=== PATIENT | male | born 1955 | race American Indian/Alaskan Native ===

== ENCOUNTER 2016-08-22 11:26 | Outpatient (CLI) | payer OTHER ==
[2016-08-22] MEDS ORDERED: XYLOCAINE TOPICAL 2% TP ONE ×2 (11:56→12:13)
== END 2016-08-22 11:27 | disposition home or self-care (01) ==
LOC: WOUND 11:26
PROVIDERS: ATTEND Orthopaedic Surgery
DX: S71.102D Unspecified open wound, left thigh, subsequent encounter (principal); J45.909 Unspecified asthma, uncomplicated; Z87.891 Personal history of nicotine dependence; W17.89XD Other fall from one level to another, subsequent encounter
CPT/HCPCS: 97597; 97598

== ENCOUNTER 2016-09-05 07:46 | Outpatient (CLI) | payer OTHER ==
[2016-09-05] MEDS ORDERED: XYLOCAINE TOPICAL 2% TP ONE (10:54)
[2016-09-05] MEDS ORDERED: SANTYL TP ONE (11:43)
[2016-09-05] MEDS ORDERED: SILVER NITRATE TP ONE (11:45)
[2016-09-05] MEDS ORDERED: NACL 0.9% 500 ML IR ONE (11:58)
[2016-09-06] MEDS ORDERED: SILVER NITRATE TP ONE (16:12)
[2016-09-06] MEDS ORDERED: NACL 0.9% IR PRN (16:12)
[2016-09-06] MEDS ORDERED: XYLOCAINE TOPICAL 2% TP ONE (16:12)
== END 2016-09-05 07:47 | disposition home or self-care (01) ==
LOC: WOUND 07:46
PROVIDERS: ATTEND Internal Medicine
DX: T86.821 Skin graft (allograft) (autograft) failure (principal); L97.822 Non-pressure chronic ulcer of other part of left lower leg with fat layer exposed; J44.0 Chronic obstructive pulmonary disease with (acute) lower respiratory infection; E66.01 Morbid (severe) obesity due to excess calories; I10 Essential (primary) hypertension; R35.8 Other polyuria; Z87.891 Personal history of nicotine dependence; Y83.2 Surgical operation with anastomosis, bypass or graft as the cause of abnormal reaction of the patient, or of later complication, without mention of misadventure at the time of the procedure
CPT/HCPCS: 11043; 11046; 87075; 87116; 97602; G0277; 87076; 87186; 99183

== ENCOUNTER 2016-09-06 07:47 | Outpatient (CLI) | payer OTHER | END 2016-09-06 07:48 | disposition home or self-care (01) | LOC: WOUND 07:47 | PROVIDERS: ATTEND Podiatrist | DX: T86.821 Skin graft (allograft) (autograft) failure (principal); L97.822 Non-pressure chronic ulcer of other part of left lower leg with fat layer exposed; J44.1 Chronic obstructive pulmonary disease with (acute) exacerbation; I10 Essential (primary) hypertension; J45.909 Unspecified asthma, uncomplicated; E66.9 Obesity, unspecified; Z87.891 Personal history of nicotine dependence; Y83.2 Surgical operation with anastomosis, bypass or graft as the cause of abnormal reaction of the patient, or of later complication, without mention of misadventure at the time of the procedure | CPT/HCPCS: G0277 ×2; 99183 ==

== ENCOUNTER 2016-09-07 13:30 | Outpatient (CLI) | payer OTHER | END 2016-09-07 13:31 | disposition home or self-care (01) | LOC: WOUND 13:30 | PROVIDERS: ATTEND Internal Medicine | DX: T86.821 Skin graft (allograft) (autograft) failure (principal); L97.822 Non-pressure chronic ulcer of other part of left lower leg with fat layer exposed; J44.1 Chronic obstructive pulmonary disease with (acute) exacerbation; I10 Essential (primary) hypertension; J45.909 Unspecified asthma, uncomplicated; E66.9 Obesity, unspecified; Z87.891 Personal history of nicotine dependence; Y83.2 Surgical operation with anastomosis, bypass or graft as the cause of abnormal reaction of the patient, or of later complication, without mention of misadventure at the time of the procedure | CPT/HCPCS: 82962; G0277; 99183 ==

== ENCOUNTER 2016-09-08 10:03 | Outpatient (CLI) | payer OTHER | END 2016-09-08 10:04 | disposition home or self-care (01) | LOC: WOUND 10:03 | PROVIDERS: ATTEND Internal Medicine | DX: T86.821 Skin graft (allograft) (autograft) failure (principal); L97.821 Non-pressure chronic ulcer of other part of left lower leg limited to breakdown of skin; I10 Essential (primary) hypertension; J45.909 Unspecified asthma, uncomplicated; E66.9 Obesity, unspecified; Z87.891 Personal history of nicotine dependence; Y83.2 Surgical operation with anastomosis, bypass or graft as the cause of abnormal reaction of the patient, or of later complication, without mention of misadventure at the time of the procedure | CPT/HCPCS: G0277 ×2; 99183 ==

== ENCOUNTER 2016-09-09 10:01 | Outpatient (CLI) | payer OTHER | END 2016-09-09 10:02 | disposition home or self-care (01) | LOC: WOUND 10:01 | PROVIDERS: ATTEND Podiatrist | DX: T86.821 Skin graft (allograft) (autograft) failure (principal); L97.822 Non-pressure chronic ulcer of other part of left lower leg with fat layer exposed; J44.1 Chronic obstructive pulmonary disease with (acute) exacerbation; I10 Essential (primary) hypertension; E66.9 Obesity, unspecified; Z87.891 Personal history of nicotine dependence; Y83.2 Surgical operation with anastomosis, bypass or graft as the cause of abnormal reaction of the patient, or of later complication, without mention of misadventure at the time of the procedure | CPT/HCPCS: G0277 ×2; 99183 ==

== ENCOUNTER 2016-09-12 10:01 | Outpatient (CLI) | payer OTHER ==
[2016-09-12] MEDS ORDERED: XYLOCAINE TOPICAL 2% TP ONE ×2 (13:12→15:06)
[2016-09-12] MEDS ORDERED: SILVER NITRATE TP ONE (16:00)
== END 2016-09-12 10:02 | disposition home or self-care (01) ==
LOC: WOUND 10:01
PROVIDERS: ATTEND Internal Medicine
DX: T86.821 Skin graft (allograft) (autograft) failure (principal); L97.821 Non-pressure chronic ulcer of other part of left lower leg limited to breakdown of skin; J44.1 Chronic obstructive pulmonary disease with (acute) exacerbation; I10 Essential (primary) hypertension; J45.909 Unspecified asthma, uncomplicated; Z87.891 Personal history of nicotine dependence; Y83.2 Surgical operation with anastomosis, bypass or graft as the cause of abnormal reaction of the patient, or of later complication, without mention of misadventure at the time of the procedure
CPT/HCPCS: 11042; 11045; G0277; 99183

== ENCOUNTER 2016-09-13 10:34 | Outpatient (CLI) | payer OTHER ==
[~2016-09-13 10:34] MED LIST: AD OINTMENT TP ONE; SILVER NITRATE TP ONE
== END 2016-09-13 10:35 | disposition home or self-care (01) ==
LOC: WOUND 10:34
PROVIDERS: ATTEND Podiatrist
DX: T86.821 Skin graft (allograft) (autograft) failure (principal); L97.821 Non-pressure chronic ulcer of other part of left lower leg limited to breakdown of skin; J44.1 Chronic obstructive pulmonary disease with (acute) exacerbation; I10 Essential (primary) hypertension; E66.9 Obesity, unspecified; Z87.891 Personal history of nicotine dependence; Y83.2 Surgical operation with anastomosis, bypass or graft as the cause of abnormal reaction of the patient, or of later complication, without mention of misadventure at the time of the procedure
CPT/HCPCS: G0277 ×2; 99183; A6250

== ENCOUNTER 2016-09-14 09:40 | Outpatient (CLI) | payer OTHER | END 2016-09-14 09:41 | disposition home or self-care (01) | LOC: WOUND 09:40 | PROVIDERS: ATTEND Internal Medicine | DX: T86.821 Skin graft (allograft) (autograft) failure (principal); L97.822 Non-pressure chronic ulcer of other part of left lower leg with fat layer exposed; J44.1 Chronic obstructive pulmonary disease with (acute) exacerbation; I10 Essential (primary) hypertension; E66.9 Obesity, unspecified; Z87.891 Personal history of nicotine dependence; Y83.2 Surgical operation with anastomosis, bypass or graft as the cause of abnormal reaction of the patient, or of later complication, without mention of misadventure at the time of the procedure | CPT/HCPCS: G0277 ×2; 99183 ==

== ENCOUNTER 2016-09-15 10:43 | Outpatient (CLI) | payer OTHER | END 2016-09-15 10:44 | disposition home or self-care (01) | LOC: WOUND 10:43 | PROVIDERS: ATTEND Internal Medicine | DX: T86.821 Skin graft (allograft) (autograft) failure (principal); L97.822 Non-pressure chronic ulcer of other part of left lower leg with fat layer exposed; J44.1 Chronic obstructive pulmonary disease with (acute) exacerbation; I10 Essential (primary) hypertension; E66.9 Obesity, unspecified; Z87.891 Personal history of nicotine dependence | CPT/HCPCS: G0277 ×2; 99183 ==

== ENCOUNTER 2016-09-16 10:11 | Outpatient (CLI) | payer OTHER | END 2016-09-16 10:12 | disposition home or self-care (01) | LOC: WOUND 10:11 | PROVIDERS: ATTEND Podiatrist | DX: T86.821 Skin graft (allograft) (autograft) failure (principal); L97.822 Non-pressure chronic ulcer of other part of left lower leg with fat layer exposed; J44.1 Chronic obstructive pulmonary disease with (acute) exacerbation; I10 Essential (primary) hypertension; E66.9 Obesity, unspecified; Z87.891 Personal history of nicotine dependence; Y83.2 Surgical operation with anastomosis, bypass or graft as the cause of abnormal reaction of the patient, or of later complication, without mention of misadventure at the time of the procedure | CPT/HCPCS: G0277 ×2; 82962; 99183 ==

== ENCOUNTER 2016-09-19 10:04 | Outpatient (CLI) | payer OTHER ==
[2016-09-19] MEDS ORDERED: XYLOCAINE TOPICAL 4% TP ONE ×2 (12:40→16:30)
[2016-09-19] MEDS ORDERED: SILVER NITRATE TP ONE ×4 (13:07→16:30)
== END 2016-09-19 10:05 | disposition home or self-care (01) ==
LOC: WOUND 10:04
PROVIDERS: ATTEND Internal Medicine
DX: T86.821 Skin graft (allograft) (autograft) failure (principal); L97.822 Non-pressure chronic ulcer of other part of left lower leg with fat layer exposed; J44.1 Chronic obstructive pulmonary disease with (acute) exacerbation; I10 Essential (primary) hypertension; R35.8 Other polyuria; E66.9 Obesity, unspecified; Z87.891 Personal history of nicotine dependence; Y83.2 Surgical operation with anastomosis, bypass or graft as the cause of abnormal reaction of the patient, or of later complication, without mention of misadventure at the time of the procedure
CPT/HCPCS: 11042; 11045; G0277; 99183

== ENCOUNTER 2016-09-20 09:53 | Outpatient (CLI) | payer OTHER | END 2016-09-20 09:54 | disposition home or self-care (01) | LOC: WOUND 09:53 | PROVIDERS: ATTEND Podiatrist | DX: T86.821 Skin graft (allograft) (autograft) failure (principal); L97.821 Non-pressure chronic ulcer of other part of left lower leg limited to breakdown of skin; J44.1 Chronic obstructive pulmonary disease with (acute) exacerbation; I10 Essential (primary) hypertension; J45.909 Unspecified asthma, uncomplicated; E66.9 Obesity, unspecified; Z87.891 Personal history of nicotine dependence; Y83.2 Surgical operation with anastomosis, bypass or graft as the cause of abnormal reaction of the patient, or of later complication, without mention of misadventure at the time of the procedure | CPT/HCPCS: G0277 ×2; 99183 ==

== ENCOUNTER 2016-09-21 10:00 | Outpatient (CLI) | payer OTHER | END 2016-09-21 10:01 | disposition home or self-care (01) | LOC: WOUND 10:00 | PROVIDERS: ATTEND Internal Medicine | DX: T86.821 Skin graft (allograft) (autograft) failure (principal); L97.822 Non-pressure chronic ulcer of other part of left lower leg with fat layer exposed; J44.1 Chronic obstructive pulmonary disease with (acute) exacerbation; I10 Essential (primary) hypertension; E66.9 Obesity, unspecified; Z87.891 Personal history of nicotine dependence; Y83.2 Surgical operation with anastomosis, bypass or graft as the cause of abnormal reaction of the patient, or of later complication, without mention of misadventure at the time of the procedure | CPT/HCPCS: G0277 ×2; 99183 ==

== ENCOUNTER 2016-09-22 10:26 | Outpatient (CLI) | payer OTHER | END 2016-09-22 10:27 | disposition home or self-care (01) | LOC: WOUND 10:26 | PROVIDERS: ATTEND Nurse Practitioner | DX: T86.821 Skin graft (allograft) (autograft) failure (principal); L97.822 Non-pressure chronic ulcer of other part of left lower leg with fat layer exposed; J44.1 Chronic obstructive pulmonary disease with (acute) exacerbation; I10 Essential (primary) hypertension; E66.9 Obesity, unspecified; Z87.891 Personal history of nicotine dependence; Y83.2 Surgical operation with anastomosis, bypass or graft as the cause of abnormal reaction of the patient, or of later complication, without mention of misadventure at the time of the procedure | CPT/HCPCS: G0277 ×2; 99183 ==

== ENCOUNTER 2016-09-26 10:00 | Outpatient (CLI) | payer OTHER ==
[2016-09-26] MEDS ORDERED: XYLOCAINE TOPICAL 4% TP ONE ×2 (12:20→16:07)
== END 2016-09-26 10:01 | disposition home or self-care (01) ==
LOC: WOUND 10:00
PROVIDERS: ATTEND Internal Medicine
DX: T86.821 Skin graft (allograft) (autograft) failure (principal); L97.821 Non-pressure chronic ulcer of other part of left lower leg limited to breakdown of skin; J44.1 Chronic obstructive pulmonary disease with (acute) exacerbation; I10 Essential (primary) hypertension; E66.8 Other obesity; Z87.891 Personal history of nicotine dependence; Y83.2 Surgical operation with anastomosis, bypass or graft as the cause of abnormal reaction of the patient, or of later complication, without mention of misadventure at the time of the procedure
CPT/HCPCS: 11042; 11045; C5271; G0277; Q4102; 99183

== ENCOUNTER 2016-09-27 10:00 | Outpatient (CLI) | payer OTHER ==
[~2016-09-27 10:00] MED LIST changes: -AD OINTMENT TP ONE; -SILVER NITRATE TP ONE; +XYLOCAINE TOPICAL 4% TP ONE
== END 2016-09-27 10:01 | disposition home or self-care (01) ==
LOC: WOUND 10:00
PROVIDERS: ATTEND Podiatrist
DX: T86.821 Skin graft (allograft) (autograft) failure (principal); L97.822 Non-pressure chronic ulcer of other part of left lower leg with fat layer exposed; J44.1 Chronic obstructive pulmonary disease with (acute) exacerbation; I10 Essential (primary) hypertension; J45.909 Unspecified asthma, uncomplicated; E66.9 Obesity, unspecified; Z87.891 Personal history of nicotine dependence; Y83.2 Surgical operation with anastomosis, bypass or graft as the cause of abnormal reaction of the patient, or of later complication, without mention of misadventure at the time of the procedure
CPT/HCPCS: G0277 ×2; 99183

== ENCOUNTER 2016-09-28 09:54 | Outpatient (CLI) | payer OTHER | END 2016-09-28 09:55 | disposition home or self-care (01) | LOC: WOUND 09:54 | PROVIDERS: ATTEND Internal Medicine | DX: T86.821 Skin graft (allograft) (autograft) failure (principal); L97.821 Non-pressure chronic ulcer of other part of left lower leg limited to breakdown of skin; J44.1 Chronic obstructive pulmonary disease with (acute) exacerbation; I10 Essential (primary) hypertension; E66.9 Obesity, unspecified; Z87.891 Personal history of nicotine dependence; Y83.2 Surgical operation with anastomosis, bypass or graft as the cause of abnormal reaction of the patient, or of later complication, without mention of misadventure at the time of the procedure | CPT/HCPCS: G0277 ×2; 99183 ==

== ENCOUNTER 2016-09-29 09:59 | Outpatient (CLI) | payer OTHER | END 2016-09-29 10:00 | disposition home or self-care (01) | LOC: WOUND 09:59 | PROVIDERS: ATTEND Nurse Practitioner | DX: T86.821 Skin graft (allograft) (autograft) failure (principal); L97.822 Non-pressure chronic ulcer of other part of left lower leg with fat layer exposed; J44.1 Chronic obstructive pulmonary disease with (acute) exacerbation; I10 Essential (primary) hypertension; E66.9 Obesity, unspecified; Z87.891 Personal history of nicotine dependence; Y83.2 Surgical operation with anastomosis, bypass or graft as the cause of abnormal reaction of the patient, or of later complication, without mention of misadventure at the time of the procedure | CPT/HCPCS: G0277 ×2; 99183 ==

== ENCOUNTER 2016-09-30 09:58 | Outpatient (CLI) | payer OTHER ==
[2016-09-30] MEDS ORDERED: XYLOCAINE TOPICAL 2% TP ONE (12:04)
== END 2016-09-30 09:59 | disposition home or self-care (01) ==
LOC: WOUND 09:58
PROVIDERS: ATTEND Podiatrist
DX: T86.821 Skin graft (allograft) (autograft) failure (principal); L97.822 Non-pressure chronic ulcer of other part of left lower leg with fat layer exposed; J44.1 Chronic obstructive pulmonary disease with (acute) exacerbation; I10 Essential (primary) hypertension; E66.9 Obesity, unspecified; Z87.891 Personal history of nicotine dependence; Y83.2 Surgical operation with anastomosis, bypass or graft as the cause of abnormal reaction of the patient, or of later complication, without mention of misadventure at the time of the procedure
CPT/HCPCS: G0277 ×2; 99183

== ENCOUNTER 2016-10-03 11:54 | Outpatient (CLI) | payer OTHER ==
[2016-10-03] MEDS ORDERED: XYLOCAINE TOPICAL 4% TP ONE (12:34)
== END 2016-10-03 11:55 | disposition home or self-care (01) ==
LOC: WOUND 11:54
PROVIDERS: ATTEND Internal Medicine
DX: T86.821 Skin graft (allograft) (autograft) failure (principal); L97.822 Non-pressure chronic ulcer of other part of left lower leg with fat layer exposed; I10 Essential (primary) hypertension; J44.1 Chronic obstructive pulmonary disease with (acute) exacerbation; E66.9 Obesity, unspecified; Y83.2 Surgical operation with anastomosis, bypass or graft as the cause of abnormal reaction of the patient, or of later complication, without mention of misadventure at the time of the procedure

== ENCOUNTER 2016-10-10 10:19 | Outpatient (CLI) | payer OTHER ==
--- NOTE | 2016-10-04 09:17 | History and Physical Report ---
CHIEF COMPLAINT: Left lower extremity wound nonhealing and redness around the wound for 2 weeks. HISTORY OF PRESENT ILLNESS: A 60-year-old male with a history of asthma and no hypertension. No diabetes. He was sent in from wound clinic as a direct admit. The patient is being admitted for cellulitis from the wound clinic as a direct admit. The patient has ulcer on the left leg secondary to trauma few months ago, which is a nonhealing ulcer and the patient had a skin graft from the ulcer and there was a small open wound and surrounded by erythema ____. Because of nonhealing ulcer and erythema surrounding ulcer the patient is being admitted for possible cellulitis. The patient also has skin graft, which is healing. The skin graft is on the left thigh. No fever. No chills. PAST MEDICAL HISTORY: Significant for asthma. PAST SURGICAL HISTORY: Left skin graft from the thigh to the left leg. SOCIAL HISTORY: Does not smoke. Former smoker about 20 years ago. No alcohol. No recreational drug use. FAMILY HISTORY: Significant for hypertension. CURRENT MEDICATIONS: Symbicort and Proventil inhaler. REVIEW OF SYSTEMS: CONSTITUTIONAL: No fever. No chills. No weight loss. No weight gain. HEENT: No sore throat. No postnasal drip. NECK: No neck stiffness. CARDIOVASCULAR: No chest pain. No palpitations. No diaphoresis. RESPIRATORY SYSTEMS: No wheezing. No cough. GI: No nausea. No vomiting. GENITOURINARY SYSTEMS: No dysuria. No flank pain. MUSCULOSKELETAL: No joint pain. No muscle pain. SKIN: There is no syncope. No seizures. SKIN: Skin has nonhealing ulcer on the left leg. Also on the left thigh, there is healing skin graft ulcer. HEMATOLOGY/LYMPHATIC: No easy bruising. PSYCHIATRIC: No depression. No homicidal or suicidal tendencies. A 14-point review of systems was done. PHYSICAL EXAMINATION: GENERAL: On examination, elderly male cooperative and cheerful. VITAL SIGNS: Blood pressure is 142/74, temperature is 98.1, pulse is 127 and has come down to 69, respiratory rate is 18, and sats are 99%. ENT: Unremarkable. Pupils equal and reactive. NECK: Supple. No lymphadenopathy. No thyromegaly. CHEST: Clear to auscultation and percussion. Good air entry. CARDIOVASCULAR: S1 and S2 heard. No gallop. No murmur. No rub. Apical impulse in left fifth intercostal space and midclavicular line. ABDOMEN: Soft and benign. No hepatosplenomegaly. No guarding. No rigidity. Hernial orifices are normal. EXTREMITIES: Good pedal pulses. He has a 3 cm x 4 cm ulcer on the left leg and the mid tibial region. Depth is about 2 mm. The volume of the ulcer is 4 cm x 4 cm x 0.2 mm. No purulent discharge. Surrounding erythema present. Skin graft lesion is healing. There is superficial ulcer of about 3 cm x 3 cm. Depth of about 0.1 mm. The volume is 0.9 cubic mm. LABORATORY DATA: A1c was 5.6. Electrolytes are normal. White count is 7300, hemoglobin is 14.1, and hematocrit is 43.6. No signs of osteomyelitis. ASSESSMENT AND PLAN: 1. Left lower extremity cellulitis. The patient was initially started on Unasyn, but change to Levaquin and vancomycin because of his penicillin allergies. Wound care consult requested. Once cellulitis resolves, the patient can be discharged with followup in the wound care clinic. The wound is going to take at least one more month to heal. Antibiotics for two to three days and p.o. antibiotics after discharge. 2. Asthma. Continue Symbicort and albuterol on a p.r.n. basis. 3. Deep venous thrombosis prophylaxis, Lovenox 40 mg subcutaneous daily. JOB# [id number] INDIO/ASHELY
--- NOTE | 2016-10-05 06:06 | Consultation ---
REASON FOR CONSULTATION: Evaluation of left leg wound. HISTORY OF PRESENT ILLNESS: This is a middle-aged man who sustained a worker's compensation injury to his left leg in jun 2016. He had an open wound. He was seen by Dr. Lu, treated with debridement and subsequent skin grafting. Apparently, the grafting did not take and he was continued on local wound care and is being followed at the wound clinic at [facility]. According to him, he was advised hospitalization for \\"ortho and plastic\\" consultation. The patient was admitted by the hospitalist. Orthopedic consultation was requested. He has seen Dr. Lu in the early part of August of this year that is approximately 6-8 weeks ago since then he has not seen at Dr. Lu's office. During this time, he was also seen by Vascular Surgery. PAST MEDICAL HISTORY: Includes history of an injury to his left tibia approximately 10 years ago. This was treated with internal fixation device. His primary complaint today is that of open wound as well as swelling and pain. He is able to bear weight and walk without any external support. PHYSICAL EXAMINATION: Today reveals a male to his age, alert and oriented x 3. Vital signs stable. He has moderate swelling involving the left leg with an open wound over the anterolateral aspect approximately 5 cm in length and about 1.5 cm width in the center, elliptical in shape and the base appeared covered with granulation tissue, somewhat pink and appears vascular. There is stasis dermatitis with swelling, moderate. No obvious calf pain. No evidence of DVT. Swelling of the ankle with mild limitation of movement. He has a well- healed surgical scar over the anterior aspect of the left tibia from the previous surgery. DIAGNOSTIC STUDIES: X-rays shows internal fixation device. No obvious bony abnormalities. Fracture healing appeared satisfactory and no evidence of osteomyelitis reported. DIAGNOSES: 1. Edema, left leg secondary to crush injury. 2. Open wound, posterolateral aspect of the left leg, mid and lower third. 3. Healed fracture tib-fib with internal fixation in place. I believe this swelling is primarily from dangling and gravity dependence and the wound appears healing satisfactorily. The dependent edema is a problem with no one single answer and treatment option would be that of elevation for control of swelling as well as possible use of compression stocknets. As far as the open wound is concerned, with local wound care this should slowly granulate and heal secondarily; however, this will take longer: or to consider another attempt for split thickness skin grafting with a meshed graft. I have discussed both options with him. I do not believe there is any obvious deep infection and the previous tibia fracture appeared healed satisfactorily at this point. I will discuss this with his admitting physician and if he elected to proceed with skin grafting then we could schedule this as an elective procedure. As far as swelling is concerned as I mentioned there is no one word definitive answer and control of swelling with elevation as well as compression stocknets. He may be disscharged, follow with his treating physian (Gen Surgeon) I thank you for this consultation. I will also obtain a new x-ray of the tib-fib to evaluate for the internal fixation. However, we do not see any need for removal of internal fixation at this point. JOB# [id number] DONA/ASHELY CULP
[2016-10-10] MEDS ORDERED: XYLOCAINE TOPICAL 4% TP ONE (13:00)
== END 2016-10-10 10:20 | disposition home or self-care (01) ==
LOC: WOUND 10:19
PROVIDERS: ATTEND Internal Medicine
DX: T86.821 Skin graft (allograft) (autograft) failure (principal); L97.821 Non-pressure chronic ulcer of other part of left lower leg limited to breakdown of skin; J44.1 Chronic obstructive pulmonary disease with (acute) exacerbation; I10 Essential (primary) hypertension; E66.9 Obesity, unspecified; Z87.891 Personal history of nicotine dependence; Y83.2 Surgical operation with anastomosis, bypass or graft as the cause of abnormal reaction of the patient, or of later complication, without mention of misadventure at the time of the procedure
CPT/HCPCS: 11042; C5271; G0277; Q4102; 99183

== ENCOUNTER 2016-10-11 10:00 | Outpatient (CLI) | payer OTHER | END 2016-10-11 10:01 | disposition home or self-care (01) | LOC: WOUND 10:00 | PROVIDERS: ATTEND Podiatrist | DX: T86.821 Skin graft (allograft) (autograft) failure (principal); L97.822 Non-pressure chronic ulcer of other part of left lower leg with fat layer exposed; J44.1 Chronic obstructive pulmonary disease with (acute) exacerbation; I10 Essential (primary) hypertension; E66.9 Obesity, unspecified; Z87.891 Personal history of nicotine dependence; Y83.2 Surgical operation with anastomosis, bypass or graft as the cause of abnormal reaction of the patient, or of later complication, without mention of misadventure at the time of the procedure | CPT/HCPCS: G0277 ×3; 99183 ==

== ENCOUNTER 2016-10-12 09:59 | Outpatient (CLI) | payer OTHER | END 2016-10-12 10:00 | disposition home or self-care (01) | LOC: WOUND 09:59 | PROVIDERS: ATTEND Internal Medicine | DX: T86.821 Skin graft (allograft) (autograft) failure (principal); L97.822 Non-pressure chronic ulcer of other part of left lower leg with fat layer exposed; J44.1 Chronic obstructive pulmonary disease with (acute) exacerbation; I10 Essential (primary) hypertension; J45.909 Unspecified asthma, uncomplicated; E66.9 Obesity, unspecified; Z87.891 Personal history of nicotine dependence; Y83.2 Surgical operation with anastomosis, bypass or graft as the cause of abnormal reaction of the patient, or of later complication, without mention of misadventure at the time of the procedure | CPT/HCPCS: G0277 ×2; 99183 ==

== ENCOUNTER 2016-10-13 10:00 | Outpatient (CLI) | payer OTHER | END 2016-10-13 10:01 | disposition home or self-care (01) | LOC: WOUND 10:00 | PROVIDERS: ATTEND Internal Medicine | DX: T86.821 Skin graft (allograft) (autograft) failure (principal); L97.822 Non-pressure chronic ulcer of other part of left lower leg with fat layer exposed; J44.1 Chronic obstructive pulmonary disease with (acute) exacerbation; I10 Essential (primary) hypertension; E66.9 Obesity, unspecified; Z87.891 Personal history of nicotine dependence; Y83.2 Surgical operation with anastomosis, bypass or graft as the cause of abnormal reaction of the patient, or of later complication, without mention of misadventure at the time of the procedure | CPT/HCPCS: G0277 ×2; 99183 ==

== ENCOUNTER 2016-10-14 09:58 | Outpatient (CLI) | payer OTHER | END 2016-10-14 09:59 | disposition home or self-care (01) | LOC: WOUND 09:58 | PROVIDERS: ATTEND Podiatrist | DX: T86.821 Skin graft (allograft) (autograft) failure (principal); L97.822 Non-pressure chronic ulcer of other part of left lower leg with fat layer exposed; J44.1 Chronic obstructive pulmonary disease with (acute) exacerbation; E66.9 Obesity, unspecified; Z87.891 Personal history of nicotine dependence; Y83.2 Surgical operation with anastomosis, bypass or graft as the cause of abnormal reaction of the patient, or of later complication, without mention of misadventure at the time of the procedure | CPT/HCPCS: G0277 ×2; 99183 ==

== ENCOUNTER 2016-10-17 10:05 | Outpatient (CLI) | payer OTHER ==
[2016-10-17] MEDS ORDERED: XYLOCAINE TOPICAL 4% TP ONE ×2 (12:41→13:03)
== END 2016-10-17 10:06 | disposition home or self-care (01) ==
LOC: WOUND 10:05
PROVIDERS: ATTEND Internal Medicine
DX: T86.821 Skin graft (allograft) (autograft) failure (principal); L97.821 Non-pressure chronic ulcer of other part of left lower leg limited to breakdown of skin; J44.1 Chronic obstructive pulmonary disease with (acute) exacerbation; I10 Essential (primary) hypertension; J45.909 Unspecified asthma, uncomplicated; E66.9 Obesity, unspecified; Z87.891 Personal history of nicotine dependence; Y83.2 Surgical operation with anastomosis, bypass or graft as the cause of abnormal reaction of the patient, or of later complication, without mention of misadventure at the time of the procedure
CPT/HCPCS: 97597; G0277; 99183

== ENCOUNTER 2016-10-18 10:01 | Outpatient (CLI) | payer OTHER | END 2016-10-18 10:02 | disposition home or self-care (01) | LOC: WOUND 10:01 | PROVIDERS: ATTEND Podiatrist | DX: T86.821 Skin graft (allograft) (autograft) failure (principal); L97.822 Non-pressure chronic ulcer of other part of left lower leg with fat layer exposed; J44.1 Chronic obstructive pulmonary disease with (acute) exacerbation; I10 Essential (primary) hypertension; E66.9 Obesity, unspecified; Z87.891 Personal history of nicotine dependence; Y83.2 Surgical operation with anastomosis, bypass or graft as the cause of abnormal reaction of the patient, or of later complication, without mention of misadventure at the time of the procedure | CPT/HCPCS: G0277 ×2; 99183 ==

== ENCOUNTER 2016-10-19 08:05 | Outpatient (CLI) | payer OTHER | END 2016-10-19 08:06 | disposition home or self-care (01) | LOC: WOUND 08:05 | PROVIDERS: ATTEND Internal Medicine | DX: T86.821 Skin graft (allograft) (autograft) failure (principal); L97.821 Non-pressure chronic ulcer of other part of left lower leg limited to breakdown of skin; I10 Essential (primary) hypertension; J44.1 Chronic obstructive pulmonary disease with (acute) exacerbation; Z87.891 Personal history of nicotine dependence; Y83.2 Surgical operation with anastomosis, bypass or graft as the cause of abnormal reaction of the patient, or of later complication, without mention of misadventure at the time of the procedure | CPT/HCPCS: G0277 ×2; 99183 ==

== ENCOUNTER 2016-10-20 10:14 | Outpatient (CLI) | payer OTHER | END 2016-10-20 10:15 | disposition home or self-care (01) | LOC: WOUND 10:14 | PROVIDERS: ATTEND Internal Medicine | DX: T86.821 Skin graft (allograft) (autograft) failure (principal); L97.822 Non-pressure chronic ulcer of other part of left lower leg with fat layer exposed; J44.1 Chronic obstructive pulmonary disease with (acute) exacerbation; I10 Essential (primary) hypertension; E66.9 Obesity, unspecified; Z87.891 Personal history of nicotine dependence; Y83.2 Surgical operation with anastomosis, bypass or graft as the cause of abnormal reaction of the patient, or of later complication, without mention of misadventure at the time of the procedure | CPT/HCPCS: G0277 ×2; 99183 ==

== ENCOUNTER 2016-10-21 09:59 | Outpatient (CLI) | payer OTHER | END 2016-10-21 10:00 | disposition home or self-care (01) | LOC: WOUND 09:59 | PROVIDERS: ATTEND Podiatrist | DX: T86.821 Skin graft (allograft) (autograft) failure (principal); L97.822 Non-pressure chronic ulcer of other part of left lower leg with fat layer exposed; J44.1 Chronic obstructive pulmonary disease with (acute) exacerbation; I10 Essential (primary) hypertension; Z87.891 Personal history of nicotine dependence; Y83.2 Surgical operation with anastomosis, bypass or graft as the cause of abnormal reaction of the patient, or of later complication, without mention of misadventure at the time of the procedure | CPT/HCPCS: G0277 ×2; 99183 ==

== ENCOUNTER 2016-10-24 10:10 | Outpatient (CLI) | payer OTHER ==
[2016-10-24] MEDS ORDERED: XYLOCAINE TOPICAL 4% TP ONE (13:13)
== END 2016-10-24 10:11 | disposition home or self-care (01) ==
LOC: WOUND 10:10
PROVIDERS: ATTEND Internal Medicine
DX: T86.821 Skin graft (allograft) (autograft) failure (principal); L97.822 Non-pressure chronic ulcer of other part of left lower leg with fat layer exposed; J44.1 Chronic obstructive pulmonary disease with (acute) exacerbation; I10 Essential (primary) hypertension; E66.9 Obesity, unspecified; Z87.891 Personal history of nicotine dependence; Y83.2 Surgical operation with anastomosis, bypass or graft as the cause of abnormal reaction of the patient, or of later complication, without mention of misadventure at the time of the procedure
CPT/HCPCS: C5271; G0277; Q4102; 99183

== ENCOUNTER 2016-10-25 09:58 | Outpatient (CLI) | payer OTHER | END 2016-10-25 09:59 | disposition home or self-care (01) | LOC: WOUND 09:58 | PROVIDERS: ATTEND Podiatrist | DX: T86.821 Skin graft (allograft) (autograft) failure (principal); L97.822 Non-pressure chronic ulcer of other part of left lower leg with fat layer exposed; J44.1 Chronic obstructive pulmonary disease with (acute) exacerbation; I10 Essential (primary) hypertension; E66.9 Obesity, unspecified; Z87.891 Personal history of nicotine dependence; Y83.2 Surgical operation with anastomosis, bypass or graft as the cause of abnormal reaction of the patient, or of later complication, without mention of misadventure at the time of the procedure | CPT/HCPCS: G0277 ×2; 99183 ==

== ENCOUNTER 2016-10-26 09:57 | Outpatient (CLI) | payer OTHER | END 2016-10-26 09:58 | disposition home or self-care (01) | LOC: WOUND 09:57 | PROVIDERS: ATTEND Internal Medicine | DX: T86.821 Skin graft (allograft) (autograft) failure (principal); L97.822 Non-pressure chronic ulcer of other part of left lower leg with fat layer exposed; J44.1 Chronic obstructive pulmonary disease with (acute) exacerbation; I10 Essential (primary) hypertension; E66.9 Obesity, unspecified; Z87.891 Personal history of nicotine dependence; Y83.2 Surgical operation with anastomosis, bypass or graft as the cause of abnormal reaction of the patient, or of later complication, without mention of misadventure at the time of the procedure | CPT/HCPCS: G0277 ×2; 99183 ==

== ENCOUNTER 2016-10-27 09:46 | Outpatient (CLI) | payer OTHER | END 2016-10-27 09:47 | disposition home or self-care (01) | LOC: WOUND 09:46 | PROVIDERS: ATTEND Internal Medicine | DX: T86.821 Skin graft (allograft) (autograft) failure (principal); L97.822 Non-pressure chronic ulcer of other part of left lower leg with fat layer exposed; J44.1 Chronic obstructive pulmonary disease with (acute) exacerbation; I10 Essential (primary) hypertension; E66.9 Obesity, unspecified; Z87.891 Personal history of nicotine dependence; Y83.2 Surgical operation with anastomosis, bypass or graft as the cause of abnormal reaction of the patient, or of later complication, without mention of misadventure at the time of the procedure | CPT/HCPCS: G0277 ×2; 99183 ==

== ENCOUNTER 2016-10-28 09:45 | Outpatient (CLI) | payer OTHER | END 2016-10-28 09:46 | disposition home or self-care (01) | LOC: WOUND 09:45 | PROVIDERS: ATTEND Podiatrist | DX: T86.821 Skin graft (allograft) (autograft) failure (principal); L97.822 Non-pressure chronic ulcer of other part of left lower leg with fat layer exposed; J44.1 Chronic obstructive pulmonary disease with (acute) exacerbation; I10 Essential (primary) hypertension; J45.909 Unspecified asthma, uncomplicated; E66.9 Obesity, unspecified; Z87.891 Personal history of nicotine dependence; Y83.2 Surgical operation with anastomosis, bypass or graft as the cause of abnormal reaction of the patient, or of later complication, without mention of misadventure at the time of the procedure | CPT/HCPCS: G0277 ×2; 99183 ==

== ENCOUNTER 2016-10-31 10:15 | Outpatient (CLI) | payer OTHER ==
[2016-10-31] MEDS ORDERED: XYLOCAINE TOPICAL 4% TP ONE ×2 (13:22→13:46)
== END 2016-10-31 10:16 | disposition home or self-care (01) ==
LOC: WOUND 10:15
PROVIDERS: ATTEND Internal Medicine
DX: T86.821 Skin graft (allograft) (autograft) failure (principal); L97.822 Non-pressure chronic ulcer of other part of left lower leg with fat layer exposed; J44.1 Chronic obstructive pulmonary disease with (acute) exacerbation; I10 Essential (primary) hypertension; E66.9 Obesity, unspecified; Z87.891 Personal history of nicotine dependence; Y83.2 Surgical operation with anastomosis, bypass or graft as the cause of abnormal reaction of the patient, or of later complication, without mention of misadventure at the time of the procedure
CPT/HCPCS: C5271; G0277; Q4102; 99183

== ENCOUNTER 2016-11-01 10:45 | Outpatient (CLI) | payer OTHER | END 2016-11-01 10:46 | disposition home or self-care (01) | LOC: WOUND 10:45 | PROVIDERS: ATTEND Podiatrist | DX: T86.821 Skin graft (allograft) (autograft) failure (principal); L97.821 Non-pressure chronic ulcer of other part of left lower leg limited to breakdown of skin; J44.9 Chronic obstructive pulmonary disease, unspecified; I10 Essential (primary) hypertension; E66.9 Obesity, unspecified; Z87.891 Personal history of nicotine dependence; Y83.2 Surgical operation with anastomosis, bypass or graft as the cause of abnormal reaction of the patient, or of later complication, without mention of misadventure at the time of the procedure | CPT/HCPCS: G0277 ×2; 99183 ==

== ENCOUNTER 2016-11-02 09:45 | Outpatient (CLI) | payer OTHER | END 2016-11-02 09:46 | disposition home or self-care (01) | LOC: WOUND 09:45 | PROVIDERS: ATTEND Podiatrist | DX: T86.821 Skin graft (allograft) (autograft) failure (principal); L97.821 Non-pressure chronic ulcer of other part of left lower leg limited to breakdown of skin; I10 Essential (primary) hypertension; J44.1 Chronic obstructive pulmonary disease with (acute) exacerbation; Z87.891 Personal history of nicotine dependence; Y83.2 Surgical operation with anastomosis, bypass or graft as the cause of abnormal reaction of the patient, or of later complication, without mention of misadventure at the time of the procedure | CPT/HCPCS: G0277 ×2; 99183 ==

== ENCOUNTER 2016-11-03 10:13 | Outpatient (CLI) | payer OTHER | END 2016-11-03 10:14 | disposition home or self-care (01) | LOC: WOUND 10:13 | PROVIDERS: ATTEND Internal Medicine | DX: T86.821 Skin graft (allograft) (autograft) failure (principal); L97.822 Non-pressure chronic ulcer of other part of left lower leg with fat layer exposed; J44.1 Chronic obstructive pulmonary disease with (acute) exacerbation; I10 Essential (primary) hypertension; E66.9 Obesity, unspecified; Z87.891 Personal history of nicotine dependence; Y83.2 Surgical operation with anastomosis, bypass or graft as the cause of abnormal reaction of the patient, or of later complication, without mention of misadventure at the time of the procedure | CPT/HCPCS: G0277 ×2; 99183 ==

== ENCOUNTER 2016-11-04 09:56 | Outpatient (CLI) | payer OTHER | END 2016-11-04 09:57 | disposition home or self-care (01) | LOC: WOUND 09:56 | PROVIDERS: ATTEND Podiatrist | DX: T86.821 Skin graft (allograft) (autograft) failure (principal); L97.821 Non-pressure chronic ulcer of other part of left lower leg limited to breakdown of skin; I10 Essential (primary) hypertension; J44.1 Chronic obstructive pulmonary disease with (acute) exacerbation; J45.909 Unspecified asthma, uncomplicated; E66.9 Obesity, unspecified; Z87.891 Personal history of nicotine dependence; Y83.2 Surgical operation with anastomosis, bypass or graft as the cause of abnormal reaction of the patient, or of later complication, without mention of misadventure at the time of the procedure | CPT/HCPCS: G0277 ×2; 99183 ==

== ENCOUNTER 2016-11-07 09:58 | Outpatient (CLI) | payer OTHER ==
[2016-11-07] MEDS ORDERED: XYLOCAINE TOPICAL 2% ONE (12:52)
[2016-11-07] MEDS ORDERED: XYLOCAINE TOPICAL 2% TP ONE (15:22)
== END 2016-11-07 09:59 | disposition home or self-care (01) ==
LOC: WOUND 09:58
PROVIDERS: ATTEND Internal Medicine
DX: T86.821 Skin graft (allograft) (autograft) failure (principal); L97.822 Non-pressure chronic ulcer of other part of left lower leg with fat layer exposed; J44.1 Chronic obstructive pulmonary disease with (acute) exacerbation; I10 Essential (primary) hypertension; E66.9 Obesity, unspecified; Z68.36 Body mass index [BMI] 36.0-36.9, adult; Z87.891 Personal history of nicotine dependence; Y83.2 Surgical operation with anastomosis, bypass or graft as the cause of abnormal reaction of the patient, or of later complication, without mention of misadventure at the time of the procedure
CPT/HCPCS: 11042; G0277; 99183

== ENCOUNTER 2016-11-07 10:26 | Outpatient (CLI) | payer OTHER | END 2016-11-07 10:27 | disposition home or self-care (01) | LOC: WOUND 10:26 | PROVIDERS: ATTEND Internal Medicine | DX: T86.821 Skin graft (allograft) (autograft) failure (principal); L97.822 Non-pressure chronic ulcer of other part of left lower leg with fat layer exposed; J44.1 Chronic obstructive pulmonary disease with (acute) exacerbation; I10 Essential (primary) hypertension; E66.9 Obesity, unspecified; Z87.891 Personal history of nicotine dependence; Y83.2 Surgical operation with anastomosis, bypass or graft as the cause of abnormal reaction of the patient, or of later complication, without mention of misadventure at the time of the procedure | CPT/HCPCS: 11042; G0277; 29581; 99183 ==

== ENCOUNTER 2016-11-08 10:00 | Outpatient (CLI) | payer OTHER | END 2016-11-08 10:01 | disposition home or self-care (01) | LOC: WOUND 10:00 | PROVIDERS: ATTEND Podiatrist | DX: T86.821 Skin graft (allograft) (autograft) failure (principal); L97.822 Non-pressure chronic ulcer of other part of left lower leg with fat layer exposed; J44.1 Chronic obstructive pulmonary disease with (acute) exacerbation; I10 Essential (primary) hypertension; J45.909 Unspecified asthma, uncomplicated; E66.9 Obesity, unspecified; Z87.891 Personal history of nicotine dependence; Y83.8 Other surgical procedures as the cause of abnormal reaction of the patient, or of later complication, without mention of misadventure at the time of the procedure | CPT/HCPCS: G0277 ×2; 99183 ==

== ENCOUNTER 2016-11-10 10:00 | Outpatient (CLI) | payer OTHER | END 2016-11-10 10:01 | disposition home or self-care (01) | LOC: WOUND 10:00 | PROVIDERS: ATTEND Internal Medicine | DX: T86.821 Skin graft (allograft) (autograft) failure (principal); L97.822 Non-pressure chronic ulcer of other part of left lower leg with fat layer exposed; J44.1 Chronic obstructive pulmonary disease with (acute) exacerbation; I10 Essential (primary) hypertension; Z87.891 Personal history of nicotine dependence; Y83.2 Surgical operation with anastomosis, bypass or graft as the cause of abnormal reaction of the patient, or of later complication, without mention of misadventure at the time of the procedure | CPT/HCPCS: G0277 ×2; 99183 ==

== ENCOUNTER 2016-11-11 10:00 | Outpatient (CLI) | payer OTHER ==
[2016-11-14] MEDS ORDERED: XYLOCAINE TOPICAL 2% ONE (12:47)
== END 2016-11-11 10:01 | disposition home or self-care (01) ==
LOC: WOUND 10:00
PROVIDERS: ATTEND Podiatrist
DX: T86.821 Skin graft (allograft) (autograft) failure (principal); L97.822 Non-pressure chronic ulcer of other part of left lower leg with fat layer exposed; J44.1 Chronic obstructive pulmonary disease with (acute) exacerbation; I10 Essential (primary) hypertension; E66.9 Obesity, unspecified; Z87.891 Personal history of nicotine dependence; Y83.2 Surgical operation with anastomosis, bypass or graft as the cause of abnormal reaction of the patient, or of later complication, without mention of misadventure at the time of the procedure
CPT/HCPCS: G0277 ×2; 99183

== ENCOUNTER 2016-11-14 13:16 | Outpatient (CLI) | payer OTHER ==
[2016-11-14] MEDS ORDERED: XYLOCAINE TOPICAL 2% TP ONE (13:59)
== END 2016-11-14 13:17 | disposition home or self-care (01) ==
LOC: WOUND 13:16
PROVIDERS: ATTEND Internal Medicine
DX: T86.821 Skin graft (allograft) (autograft) failure (principal); L97.821 Non-pressure chronic ulcer of other part of left lower leg limited to breakdown of skin; J44.1 Chronic obstructive pulmonary disease with (acute) exacerbation; I10 Essential (primary) hypertension; E66.9 Obesity, unspecified; Z87.891 Personal history of nicotine dependence; Y83.2 Surgical operation with anastomosis, bypass or graft as the cause of abnormal reaction of the patient, or of later complication, without mention of misadventure at the time of the procedure
CPT/HCPCS: 11042; 29581; G0277; 99183

== ENCOUNTER 2016-11-15 10:28 | Outpatient (CLI) | payer OTHER | END 2016-11-15 10:29 | disposition home or self-care (01) | LOC: WOUND 10:28 | PROVIDERS: ATTEND Podiatrist | DX: T86.821 Skin graft (allograft) (autograft) failure (principal); L97.822 Non-pressure chronic ulcer of other part of left lower leg with fat layer exposed; I10 Essential (primary) hypertension; J44.1 Chronic obstructive pulmonary disease with (acute) exacerbation; E66.9 Obesity, unspecified; Z68.36 Body mass index [BMI] 36.0-36.9, adult; Z87.891 Personal history of nicotine dependence; Y83.2 Surgical operation with anastomosis, bypass or graft as the cause of abnormal reaction of the patient, or of later complication, without mention of misadventure at the time of the procedure | CPT/HCPCS: G0277 ×2; 99183 ==

== ENCOUNTER 2016-11-16 12:26 | Outpatient (CLI) | payer OTHER | END 2016-11-16 12:27 | disposition home or self-care (01) | LOC: WOUND 12:26 | PROVIDERS: ATTEND Internal Medicine | DX: T86.821 Skin graft (allograft) (autograft) failure (principal); L97.821 Non-pressure chronic ulcer of other part of left lower leg limited to breakdown of skin; J44.1 Chronic obstructive pulmonary disease with (acute) exacerbation; I10 Essential (primary) hypertension; E66.9 Obesity, unspecified; Z87.891 Personal history of nicotine dependence; Y83.5 Amputation of limb(s) as the cause of abnormal reaction of the patient, or of later complication, without mention of misadventure at the time of the procedure | CPT/HCPCS: G0277 ×2; 99183 ==

== ENCOUNTER 2016-11-17 10:02 | Outpatient (CLI) | payer OTHER | END 2016-11-17 10:03 | disposition home or self-care (01) | LOC: WOUND 10:02 | PROVIDERS: ATTEND Internal Medicine | DX: T86.821 Skin graft (allograft) (autograft) failure (principal); L97.822 Non-pressure chronic ulcer of other part of left lower leg with fat layer exposed; J44.1 Chronic obstructive pulmonary disease with (acute) exacerbation; I10 Essential (primary) hypertension; E66.9 Obesity, unspecified; Z87.891 Personal history of nicotine dependence; Y83.2 Surgical operation with anastomosis, bypass or graft as the cause of abnormal reaction of the patient, or of later complication, without mention of misadventure at the time of the procedure | CPT/HCPCS: G0277 ×2; 99183 ==

== ENCOUNTER 2016-11-18 10:00 | Outpatient (CLI) | payer OTHER | END 2016-11-18 10:01 | disposition home or self-care (01) | LOC: WOUND 10:00 | PROVIDERS: ATTEND Podiatrist | DX: T86.821 Skin graft (allograft) (autograft) failure (principal); L97.822 Non-pressure chronic ulcer of other part of left lower leg with fat layer exposed; J44.1 Chronic obstructive pulmonary disease with (acute) exacerbation; I10 Essential (primary) hypertension; E66.9 Obesity, unspecified; Z68.35 Body mass index [BMI] 35.0-35.9, adult; Z87.891 Personal history of nicotine dependence; Y83.2 Surgical operation with anastomosis, bypass or graft as the cause of abnormal reaction of the patient, or of later complication, without mention of misadventure at the time of the procedure | CPT/HCPCS: G0277 ×2; 99183 ==

== ENCOUNTER 2016-11-21 13:38 | Outpatient (CLI) | payer OTHER | END 2016-11-21 13:39 | disposition home or self-care (01) | LOC: WOUND 13:38 | PROVIDERS: ATTEND Internal Medicine | DX: T86.821 Skin graft (allograft) (autograft) failure (principal); L97.822 Non-pressure chronic ulcer of other part of left lower leg with fat layer exposed; J44.1 Chronic obstructive pulmonary disease with (acute) exacerbation; I10 Essential (primary) hypertension; E66.9 Obesity, unspecified; Z87.891 Personal history of nicotine dependence; F15.90 Other stimulant use, unspecified, uncomplicated; Y83.2 Surgical operation with anastomosis, bypass or graft as the cause of abnormal reaction of the patient, or of later complication, without mention of misadventure at the time of the procedure ==

== ENCOUNTER 2016-11-30 11:22 | Outpatient (CLI) | payer OTHER ==
[2016-11-30] MEDS ORDERED: XYLOCAINE TOPICAL 2% TP ONE (11:26)
[2016-11-30] MEDS ORDERED: XYLOCAINE TOPICAL 4% TP ONE ×2 (11:35→11:49)
== END 2016-11-30 11:23 | disposition home or self-care (01) ==
LOC: WOUND 11:22
PROVIDERS: ATTEND Surgery
DX: T86.821 Skin graft (allograft) (autograft) failure (principal); L97.822 Non-pressure chronic ulcer of other part of left lower leg with fat layer exposed; J44.1 Chronic obstructive pulmonary disease with (acute) exacerbation; I10 Essential (primary) hypertension; E66.9 Obesity, unspecified; Z87.891 Personal history of nicotine dependence; Y83.2 Surgical operation with anastomosis, bypass or graft as the cause of abnormal reaction of the patient, or of later complication, without mention of misadventure at the time of the procedure
CPT/HCPCS: 97597

== ENCOUNTER 2016-12-05 09:53 | Outpatient (CLI) | payer OTHER ==
[2016-12-05] MEDS ORDERED: XYLOCAINE TOPICAL 4% TP ONE ×2 (10:17→14:46)
== END 2016-12-05 09:54 | disposition home or self-care (01) ==
LOC: WOUND 09:53
PROVIDERS: ATTEND Internal Medicine
DX: T86.821 Skin graft (allograft) (autograft) failure (principal); L97.822 Non-pressure chronic ulcer of other part of left lower leg with fat layer exposed; I87.2 Venous insufficiency (chronic) (peripheral); J44.1 Chronic obstructive pulmonary disease with (acute) exacerbation; I10 Essential (primary) hypertension; E66.9 Obesity, unspecified; Z87.891 Personal history of nicotine dependence; Y83.2 Surgical operation with anastomosis, bypass or graft as the cause of abnormal reaction of the patient, or of later complication, without mention of misadventure at the time of the procedure
CPT/HCPCS: 29581

== ENCOUNTER 2016-12-12 10:00 | Outpatient (CLI) | payer OTHER ==
[2016-12-12] MEDS ORDERED: AD OINTMENT TP ONE (10:49)
[2016-12-13] MEDS ORDERED: AD OINTMENT TP SCH (10:00)
== END 2016-12-12 10:01 | disposition home or self-care (01) ==
LOC: WOUND 10:00
PROVIDERS: ATTEND Internal Medicine
DX: T86.821 Skin graft (allograft) (autograft) failure (principal); L97.822 Non-pressure chronic ulcer of other part of left lower leg with fat layer exposed; I10 Essential (primary) hypertension; J44.1 Chronic obstructive pulmonary disease with (acute) exacerbation; I87.2 Venous insufficiency (chronic) (peripheral); M79.662 Pain in left lower leg; E66.9 Obesity, unspecified; L84 Corns and callosities; Z87.891 Personal history of nicotine dependence; Y83.2 Surgical operation with anastomosis, bypass or graft as the cause of abnormal reaction of the patient, or of later complication, without mention of misadventure at the time of the procedure
CPT/HCPCS: 11055; G0463; 99214; A6250

== ENCOUNTER 2016-12-26 11:04 | Outpatient (CLI) | payer OTHER ==
[2016-12-26] MEDS ORDERED: XYLOCAINE TOPICAL 2% ONE (11:25)
[2016-12-27] MEDS ORDERED: XYLOCAINE TOPICAL 2% TP ONE (09:07)
== END 2016-12-26 11:05 | disposition home or self-care (01) ==
LOC: WOUND 11:04
PROVIDERS: ATTEND Surgery
DX: S80.812A Abrasion, left lower leg, initial encounter (principal); I87.2 Venous insufficiency (chronic) (peripheral); J45.909 Unspecified asthma, uncomplicated; E66.9 Obesity, unspecified; Z68.36 Body mass index [BMI] 36.0-36.9, adult; Z87.891 Personal history of nicotine dependence; X58.XXXA Exposure to other specified factors, initial encounter; Y93.89 Activity, other specified; Y92.89 Other specified places as the place of occurrence of the external cause; Y99.8 Other external cause status
CPT/HCPCS: 29580; G0463; 99213

== ENCOUNTER 2017-01-03 11:05 | Outpatient (CLI) | payer OTHER ==
[2017-01-03] MEDS ORDERED: XYLOCAINE TOPICAL 2% ONE (11:40)
[2017-01-03] MEDS ORDERED: XYLOCAINE TOPICAL 2% TP ONE (15:36)
== END 2017-01-03 11:06 | disposition home or self-care (01) ==
LOC: WOUND 11:05
PROVIDERS: ATTEND Surgery
DX: S80.812D Abrasion, left lower leg, subsequent encounter (principal); I87.2 Venous insufficiency (chronic) (peripheral); J45.909 Unspecified asthma, uncomplicated; E66.9 Obesity, unspecified; Z68.36 Body mass index [BMI] 36.0-36.9, adult; Z87.891 Personal history of nicotine dependence; X58.XXXD Exposure to other specified factors, subsequent encounter
CPT/HCPCS: 99214; G0463

== ENCOUNTER 2017-01-16 11:01 | Outpatient (CLI) | payer OTHER | END 2017-01-16 11:02 | disposition home or self-care (01) | LOC: WOUND 11:01 | PROVIDERS: ATTEND Internal Medicine | DX: T86.821 Skin graft (allograft) (autograft) failure (principal); I87.2 Venous insufficiency (chronic) (peripheral); L97.822 Non-pressure chronic ulcer of other part of left lower leg with fat layer exposed; J44.1 Chronic obstructive pulmonary disease with (acute) exacerbation; I10 Essential (primary) hypertension; E66.9 Obesity, unspecified; Z87.891 Personal history of nicotine dependence; Y83.2 Surgical operation with anastomosis, bypass or graft as the cause of abnormal reaction of the patient, or of later complication, without mention of misadventure at the time of the procedure | CPT/HCPCS: 99213; G0463 ==

== ENCOUNTER 2017-01-23 11:19 | Outpatient (CLI) | payer OTHER ==
[2017-01-23] MEDS ORDERED: XYLOCAINE TOPICAL 2% TP ONE (11:55)
[2017-01-23] MEDS ORDERED: XYLOCAINE TOPICAL 2% ONE (12:08)
== END 2017-01-23 11:20 | disposition home or self-care (01) ==
LOC: WOUND 11:19
PROVIDERS: ATTEND Internal Medicine
DX: T86.821 Skin graft (allograft) (autograft) failure (principal); L97.822 Non-pressure chronic ulcer of other part of left lower leg with fat layer exposed; J44.1 Chronic obstructive pulmonary disease with (acute) exacerbation; I10 Essential (primary) hypertension; I87.2 Venous insufficiency (chronic) (peripheral); E66.9 Obesity, unspecified; Z68.36 Body mass index [BMI] 36.0-36.9, adult; Z87.891 Personal history of nicotine dependence; Y83.2 Surgical operation with anastomosis, bypass or graft as the cause of abnormal reaction of the patient, or of later complication, without mention of misadventure at the time of the procedure

== ENCOUNTER 2017-01-30 11:04 | Outpatient (CLI) | payer OTHER | END 2017-01-30 11:05 | disposition home or self-care (01) | LOC: WOUND 11:04 | PROVIDERS: ATTEND Internal Medicine | DX: T86.821 Skin graft (allograft) (autograft) failure (principal); L97.822 Non-pressure chronic ulcer of other part of left lower leg with fat layer exposed; J44.1 Chronic obstructive pulmonary disease with (acute) exacerbation; I10 Essential (primary) hypertension; I87.2 Venous insufficiency (chronic) (peripheral); E66.9 Obesity, unspecified; R07.89 Other chest pain; Z68.36 Body mass index [BMI] 36.0-36.9, adult; Z87.891 Personal history of nicotine dependence; M79.672 Pain in left foot; L84 Corns and callosities; Y83.2 Surgical operation with anastomosis, bypass or graft as the cause of abnormal reaction of the patient, or of later complication, without mention of misadventure at the time of the procedure | CPT/HCPCS: 11055; G0463 ==

== ENCOUNTER 2017-02-20 11:01 | Outpatient (CLI) | payer OTHER | END 2017-02-20 11:02 | disposition home or self-care (01) | LOC: WOUND 11:01 | PROVIDERS: ATTEND Internal Medicine | DX: T86.821 Skin graft (allograft) (autograft) failure (principal); L97.822 Non-pressure chronic ulcer of other part of left lower leg with fat layer exposed; J44.1 Chronic obstructive pulmonary disease with (acute) exacerbation; I87.2 Venous insufficiency (chronic) (peripheral); I10 Essential (primary) hypertension; E66.9 Obesity, unspecified; Z68.36 Body mass index [BMI] 36.0-36.9, adult; Z87.891 Personal history of nicotine dependence; Y83.2 Surgical operation with anastomosis, bypass or graft as the cause of abnormal reaction of the patient, or of later complication, without mention of misadventure at the time of the procedure | CPT/HCPCS: 99213; G0463 ==